=== PATIENT | female | born 1980 | race Hispanic/Latino ===

== ENCOUNTER 2017-05-19 12:52 | Emergency (ER) | payer BC, OTHER ==
[2017-05-19 13:38] LABS: Urine Blood NEGATIVE (NEG); Urine Glucose NEGATIVE (NEG); Urine Protein 1+ (NEG); Urine Specific Gravity 1.015 (1.005-1.030); Urine pH 8.5 (5.0-7.0)
[2017-05-19 14:01] LABS: Bicarbonate 32 mEq/L (21-31); Glucose Level 106 mg/dL (65-120); Lipase 15 U/L (22-51); Potassium 3.5 mEq/L (3.6-5.0); Sodium Level 138 mEq/L (135-145)
[2017-05-19 14:03] LABS: Glomerular Filtration Rate > 60 mL/min (>60)
--- NOTE | 2017-05-19 14:06 | RAD REPORT ---
EXAM DESCRIPTION: US - Abdomen Exam Limited - 05/19/2017 1:55 pm CLINICAL HISTORY: Abdominal pain, vomiting COMPARISON: None. FINDINGS: Multiple gallstones are identified. The gallbladder is partially contracted. This accentua michelle wall thickness. A true pathologic gallbladder wall thickening is not suspected. No pericholecysti c fluid. The contracted state and multiple gallstones limits the ability to assess for wall mass or p olyp. No common duct stone or biliary tree dilatation identified. IMPRESSION: Multiple gallstones in a partially contracted gallbladder. No true wall thickening or pericholecystic fluid seen. No biliary tree abnormality.
[2017-05-19 14:07] LABS: ALT/SGPT 41 IU/L (10-60); AST/SGOT 37 IU/L (10-42); Albumin 4.7 g/dL (3.2-5.5); Alkaline Phosphatase 66 IU/L (42-121); Amylase Level 46 U/L (28-100); BUN Blood Urea Nitrogen 9 mg/dL (6-20); Bilirubin Direct 0.2 mg/dL (0-0.2); Bilirubin Total 0.9 mg/dL (0.3-1.2); Glomerular Filtration Rate > 90 mL/min (=/>90)
[2017-05-19 14:10] LABS: Urine Bacteria <20 /HPF (<20); Urine Culture Reflex Order NOT NEEDED; Urine RBC <5 /HPF (NONE SEEN)
[2017-05-19] MEDS ORDERED: NA CHLORIDE 0.9% 1,000 ML ONE ×2 (14:16→16:20)
[2017-05-19] MEDS ORDERED: PANTOPRAZOLE 40 MG INJ ONE (14:16)
[2017-05-19] MEDS ORDERED: ONDANSETRON 4 MG/2 ML VIAL ONE (14:16)
[2017-05-19 14:22] LABS: Absolute Lymphocytes (CBC) 2.8 K/uL (0.7-4.9); Absolute Monocytes 0.9 K/uL (0.1-1.3); Absolute Neutrophil 10.6 K/uL (1.8-8.0); Basophils % 0.5 % (0-1.3); Eosinophils % 1.8 % (0-4.4); Hematocrit 45.8 % (36.0-45.0); Lymphocytes % 19.2 % (15.3-44.8); MCH 28.3 pg (27.0-35.0); MCV 84.5 fL (80-100); MPV 9.6 fL (7.6-11.3); Monocytes % 5.9 % (3.3-12.3); RBC Red Blood Cell Count 5.42 M/uL (3.86-4.86)
[2017-05-19] MEDS ORDERED: MAGNE/ALUM HYDROXD 30 ML UCUP ONE (14:28)
[2017-05-19] MEDS ORDERED: MORPHINE 4 MG/ML SYR ONE ×2 (14:28→17:54)
[2017-05-19] MEDS ORDERED: DICYCLOMINE HCL 10 MG CAP ONE (14:28)
[2017-05-19] MEDS ORDERED: LIDOCAINE VISCOUS 2% SOLN 15 ML UDC ONE (14:29)
--- NOTE | 2017-05-19 16:55 | RAD REPORT ---
EXAM DESCRIPTION: CT - Abdomen Pelvis W Contrast - 05/19/2017 4:42 pm CLINICAL HISTORY: Abdominal pain. Nausea and vomiting since last night COMPARISON: Ultrasound same date TECHNIQUE: Computed axial tomography of the abdomen and pelvis was obtained. 100 cc Isovue-300 is ad ministered intravenously. Oral contrast was given. All CT scans are performed using dose optimization technique as appropriate and may include automated exposure control or mA/KV adjustment according to patient size. FINDINGS: The liver has a diminished attenuation consistent with fatty infiltration Spleen, pancreas, adrenals and kidneys appear unremarkable. Gallstones are present. The gallbladder wall does not appear thickened. There is no evidence of diverticulitis IMPRESSION: Cholelithiasis
--- NOTE | 2017-05-19 17:20 | EDPHYS ---
Physician Documentation [facility] Name: Jannette Alas Age: 36 yrs Sex: Female : 1980 Arrival Date: 05/19/2017 Time: 12:54 Bed 24 Private MD: ED Physician Dickson Valencia HPI: 05/19 13:20 This 36 yrs old Female presents to ER via Ambulatory with complaints of cp Abdominal Pain. 13:20 The patient presents with abdominal pain in the epigastric area, mid abdomen. Onset: cp The symptoms/episode began/occurred last night. 13:20 Associated signs and symptoms: Pertinent positives: nausea, Pertinent negatives: blood cp in stools, constipation, diarrhea, fever, vomiting. 13:20 The symptoms are described as constant. Modifying factors: the symptoms are aggravated cp by pressure. 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 - Social history:: Smoking status: Patient/guardian denies using tobacco. ROS: 13:25 Eyes: Negative for injury, pain, redness, and discharge, ENT: Negative for injury, cp pain, and discharge, Cardiovascular: Negative for chest pain, palpitations, and edema, Respiratory: Negative for shortness of breath, cough, wheezing, and pleuritic chest pain. 13:25 Constitutional: Negative for body aches, chills, fever, poor PO intake. 13:25 Abdomen/GI: Positive for abdominal pain, nausea, of the epigastric area and mid cp abdomen, Negative for diarrhea, constipation. 13:25 Back: Negative for radiated pain. 13:25 : Negative for urinary symptoms. 13:25 Skin: Negative for cellulitis, rash. 13:25 All other systems are negative. Exam: 13:33 Constitutional: The patient appears in no acute distress, alert, awake, non-toxic, well cp developed, well nourished, obese, uncomfortable. 13:33 Head/Face: Normocephalic, atraumatic. cp 13:33 Eyes: Periorbital structures: appear normal, Conjunctiva: normal, no exudate, no injection, Sclera: no appreciated abnormality, Lids and lashes: appear normal, bilaterally. 13:33 ENT: External ear(s): are unremarkable, Nose: is normal, Mouth: Lips: moist, Oral mucosa: pink and intact, moist, Posterior pharynx: is normal, airway is patent, no erythema, no exudate, Voice: is normal. 13:33 Neck: ROM/movement: is normal, is supple, without pain, no range of motions limitations, no meningismus, no nuchal rigidity. 13:33 Chest/axilla: Inspection: normal, Palpation: is normal, no crepitus, no tenderness. 13:33 Cardiovascular: Rate: normal, Rhythm: regular. 13:33 Respiratory: the patient does not display signs of respiratory distress, Respirations: normal, no use of accessory muscles, no retractions, no splinting, no tachypnea, Breath sounds: are clear throughout, no decreased breath sounds, no stridor, no wheezing. 13:33 Abdomen/GI: Inspection: obese Bowel sounds: active, all quadrants, Palpation: soft, in all quadrants, moderate abdominal tenderness, in the epigastric area and mid abdomen, rebound tenderness, is not appreciated, voluntary guarding, is elicited in the epigastric area, involuntary guarding, is not appreciated. 13:33 Back: pain, is absent, ROM is normal. 13:33 Skin: cellulitis, is not appreciated, no rash present. Vital Signs: 13:00 BP 185 / 99; Pulse 73; Resp 17; Temp 97.4; Pulse Ox 99% on R/A; Weight 129.27 kg; aj Height 5 ft. 5 in. (165.10 cm); Pain 6/10; 14:35 BP 160 / 98; Pulse 62; Resp 15; Pulse Ox 98% on R/A; kr2 15:41 BP 148 / 97; Pulse 70; Resp 18; Pulse Ox 99% on R/A; kr2 17:00 BP 152 / 88; Pulse 68; Resp 14; Pulse Ox 99% on R/A; kr2 18:00 BP 144 / 88; Pulse 72; Resp 15; Pulse Ox 99% on R/A; kr2 13:00 Body Mass Index 47.43 (129.27 kg, 165.10 cm) aj MDM: 13:06 Patient medically screened. cp 14:00 Differential diagnosis: appendicitis, cholecystitis, Cholelithiasis, gastritis, cp pancreatitis, Peptic Ulcer Disease, Perf. Duodenal Ulcer, Perf. Gastric Ulcer, Ureterolithiasis, urinary tract infection. 17:18 Data reviewed: vital signs, nurses notes, lab test result(s), radiologic studies, CT cp scan, ultrasound, and as a result, I will discharge patient. Counseling: I had a detailed discussion with the patient and/or guardian regarding: the historical points, exam findings, and any diagnostic results supporting the discharge/admit diagnosis, lab results, radiology results, the need for outpatient follow up, a general surgeon, to return to the emergency department if symptoms worsen or persist or if there are any questions or concerns that arise at home. 05/19 13:18 Order name: Urine Dipstick--Ancillary (enter results); Complete Time: 14:06 05/19 14:33 Interpretation: Normal except: UPH 8.5; UPROT 1+. 05/19 13:18 Order name: Urine --Ancillary (enter results); Complete Time: 14:06 05/19 13:33 Order name: Amylase, Serum; Complete Time: 14:33 cp 05/19 13:33 Order name: Basic Metabolic Panel; Complete Time: 14:33 cp 05/19 14:07 Interpretation: Normal except: K 3.5; CL 97; CO2 32. cp 05/19 13:33 Order name: CBC with Diff; Complete Time: 14:39 cp 05/19 17:03 Interpretation: Normal except: WBC 14.6; RBC 5.42; HGB 15.4; HCT 45.8. cp 04 13:33 Order name: Creatinine for Radiology; Complete Time: 14:06 cp 05/19 13:33 Order name: Hepatic Function; Complete Time: 14:33 cp 05/19 13:33 Order name: Lipase; Complete Time: 14:33 cp 05/19 14:33 Interpretation: LIP 15; Reviewed. cp 05/19 13:33 Order name: Urine Microscopic Only; Complete Time: 14:33 cp 05/19 13:33 Order name: US Abdomen Limited; Complete Time: 14:06 cp 05/19 14:33 Interpretation: Report reviewed. cp 05/19 14:39 Order name: CT Abd/Pelvis - W/Contrast; Complete Time: 17:02 cp 03 17:02 Interpretation: Report reviewed. cp 05/19 13:33 Order name: Urine Test (obtain specimen); Complete Time: 14:25 cp 05/19 13:33 Order name: IV Saline Lock; Complete Time: 14:25 cp 05/19 13:33 Order name: Labs collected and sent; Complete Time: 14:25 cp 05/19 13:33 Order name: Urine Dipstick-Ancillary (obtain specimen); Complete Time: 14:25 cp 05/19 17:02 Order name: PO challenge; Complete Time: 17:50 cp Administered Medications: Discontinued: NS 0.9% 1000 ml IV at 125 ml/hr continuous 14:22 Drug: NS 0.9% 1000 ml Route: IV; Rate: 1 bolus; Site: right antecubital; kr2 15:45 Follow up: Response: No adverse reaction; IV Status: Completed infusion kr2 14:23 Drug: Zofran 4 mg Route: IVP; Site: right antecubital; kr2 15:00 Follow up: Response: No adverse reaction; Nausea is decreased kr2 14:23 Drug: ProTONIX 40 mg Route: IVP; Site: right antecubital; kr2 15:00 Follow up: Response: No adverse reaction; Pain is decreased kr2 14:23 Drug: morphine 4 mg Route: IVP; Site: right antecubital; kr2 15:00 Follow up: Response: No adverse reaction; Pain is decreased kr2 14:24 Drug: GI Cocktail without - (Maalox Suspension 30 ml, Lidocaine Liquid 2 % 15 kr2 ml) Route: PO; 17:57 Follow up: Response: No adverse reaction kr2 14:24 Drug: Bentyl 20 mg Route: PO; kr2 17:57 Follow up: Response: No adverse reaction; Pain is decreased kr2 16:01 Drug: NS 0.9% 1000 ml Route: IV; Rate: 125 ml/hr; Site: right antecubital; kr2 17:56 Follow up: Response: No adverse reaction; IV Status: Order to discontinue infusion kr2 17:12 CANCELLED (Physician Discretion): Demerol 25 mg IVP once cp 17:50 Drug: Potassium Chloride 20 mEq Route: PO; kr2 17:56 Follow up: Response: Medication administered at discharge. kr2 17:50 Drug: morphine 4 mg Route: IVP; Site: right antecubital; kr2 17:55 Follow up: Response: No adverse reaction; Pain is decreased kr2 Disposition: 05/19/17 17:20 Discharged to Home. Impression: Cholelithiasis. - Condition is Stable. - Discharge Instructions: Biliary Colic, Cholelithiasis. - Prescriptions for Bentyl 20 mg Oral Tablet - take 2 tablet by ORAL route every 6 hours As needed; 40 tablet. Cipro 500 mg Oral Tablet - take 1 tablet by ORAL route every 12 hours for 7 days; 14 tablet. Tramadol 50 mg Oral Tablet - take 1 tablet by ORAL route every 8 hours as needed; 12 tablet. promethazine 25 mg Oral Tablet - take 1 tablet by ORAL route every 6 hours As needed; 20 tablet. - Medication Reconciliation Form, Thank You Letter, Antibiotic Education, Prescription Opioid Use form. - Follow up: Lit Brambila MD; When: 1 - 2 days; Reason: Recheck today's complaints. - Problem is new. - Symptoms have improved. Signatures: Dispatcher [employer] EDWhit Carlton, RN RN Adam Cordero PA PA cp Samreen Villarreal RN RN kr2 Corrections: (The following items were deleted from the chart) 14:40 14:39 Constitutional: Negative for cp cp 17:12 17:11 Demerol 25 mg IVP once ordered. cp cp
--- NOTE | 2017-05-19 17:20 | ER ---
Nurse's Notes [facility] Name: Jannette Alas Age: 36 yrs Sex: Female : 1980 Arrival Date: 05/19/2017 Time: 12:54 Bed 24 Private MD: Diagnosis: Cholelithiasis Presentation: 05/19 12:58 Presenting complaint: Patient states: Epigastric pain and N/V that started last night aj after eating a PB\\T\\J sandwich. Patient states, "I think my gallbladder is acting up.". Transition of care: patient was not received from another setting of care. Onset of symptoms was May 18, 2017. Care prior to arrival: None. 12:58 Method Of Arrival: Ambulatory 12:58 Acuity: ZAID 3 aj Triage Assessment: 13:00 General: Appears in no apparent distress. comfortable, Behavior is calm, cooperative, aj appropriate for age. Pain: Complains of pain in epigastric area Pain currently is 6 out of 10 on a pain scale. Neuro: Level of Consciousness is awake, alert, obeys commands, Oriented to person, place, time, situation. Respiratory: Airway is patent Respiratory effort is even, unlabored, Respiratory pattern is regular, symmetrical. GI: Reports upper abdominal pain, epigastric pain, nausea, vomiting. Derm: Skin is intact, is healthy with good turgor, Skin is pink, warm \\T\\ dry. normal. 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 - Social history:: Smoking status: Patient/guardian denies using tobacco. Screenin:35 Abuse screen: Denies threats or abuse. Denies injuries from another. Nutritional kr2 screening: No deficits noted. Tuberculosis screening: No symptoms or risk factors identified. Fall Risk None identified. Assessment: 13:15 General: Appears in no apparent distress. comfortable, well groomed, well developed, kr2 well nourished, Behavior is calm, cooperative, appropriate for age. Pain: Complains of pain in epigastric area Pain currently is 5 out of 10 on a pain scale. Quality of pain is described as aching, dull, Pain began gradually, Is continuous, Alleviated by medications, rest, Aggravated by eating. Neuro: Level of Consciousness is awake, alert, obeys commands, Oriented to person, place, time, situation, Appropriate for age. Cardiovascular: Capillary refill < 3 seconds in bilateral fingers Patient's skin is warm and dry. Respiratory: Airway is patent Respiratory effort is even, unlabored, Respiratory pattern is regular, symmetrical. GI: Abdomen is round non-distended, Bowel sounds present X 4 quads. Abd is soft X 4 quads Abdomen is tender to palpation in epigastric area, right upper quadrant and left upper quadrant Reports upper abdominal pain, epigastric pain, nausea. : Denies burning with urination. EENT: Oral mucosa is moist. Derm: Skin is intact, is healthy with good turgor, Skin is pink, warm \\T\\ dry. Musculoskeletal: Circulation, motion, and sensation intact. 14:15 Reassessment: Patient appears in no apparent distress at this time. Patient and/or kr2 family updated on plan of care and expected duration. Pain level reassessed. Patient is alert, oriented x 3, equal unlabored respirations, skin warm/dry/pink. 15:30 Reassessment: Patient appears in no apparent distress at this time. Patient and/or kr2 family updated on plan of care and expected duration. Pain level reassessed. Patient is alert, oriented x 3, equal unlabored respirations, skin warm/dry/pink. Patient states symptoms have improved. 16:30 Reassessment: Patient appears in no apparent distress at this time. Patient and/or kr2 family updated on plan of care and expected duration. Pain level reassessed. Patient is alert, oriented x 3, equal unlabored respirations, skin warm/dry/pink. Patient states feeling better. 17:30 Reassessment: Patient appears in no apparent distress at this time. Patient and/or kr2 family updated on plan of care and expected duration. Pain level reassessed. Patient is alert, oriented x 3, equal unlabored respirations, skin warm/dry/pink. Reports mild pain. Vital Signs: 13:00 BP 185 / 99; Pulse 73; Resp 17; Temp 97.4; Pulse Ox 99% on R/A; Weight 129.27 kg; aj Height 5 ft. 5 in. (165.10 cm); Pain 6/10; 14:35 BP 160 / 98; Pulse 62; Resp 15; Pulse Ox 98% on R/A; kr2 15:41 BP 148 / 97; Pulse 70; Resp 18; Pulse Ox 99% on R/A; kr2 17:00 BP 152 / 88; Pulse 68; Resp 14; Pulse Ox 99% on R/A; kr2 18:00 BP 144 / 88; Pulse 72; Resp 15; Pulse Ox 99% on R/A; kr2 13:00 Body Mass Index 47.43 (129.27 kg, 165.10 cm) aj ED Course: 12:54 Patient arrived in ED. as 12:59 Triage completed. aj 13:00 Arm band placed on right wrist. Patient placed in an exam room. aj 13:05 Adam Pabon PA is PHCP. cp 13:05 Dickson Valencia MD is Attending Physician. cp 13:43 Samreen Villarreal, CORRIE is Primary Nurse. kr2 13:45 Patient taken to ultrasound. via wheelchair. aa4 13:52 Ultrasound completed. Patient tolerated well. Patient moved back from ultrasound. aa4 13:55 US Abdomen Limited In Process Unspecified. EDMS 14:35 Patient has correct armband on for positive identification. Bed in low position. Call kr2 light in reach. Side rails up X 1. Pulse ox on. NIBP on. Door closed. Warm blanket given. Head of bed elevated. 16:[address] via wheelchair. nj 16:42 CT Abd/Pelvis - W/Contrast In Process Unspecified. EDMS 17:19 Lit Brambila MD is Referral Physician. cp 18:00 No provider procedures requiring assistance completed. IV discontinued, intact, kr2 bleeding controlled, No redness/swelling at site. Pressure dressing applied. Administered Medications: Discontinued: NS 0.9% 1000 ml IV at 125 ml/hr continuous 14:22 Drug: NS 0.9% 1000 ml Route: IV; Rate: 1 bolus; Site: right antecubital; kr2 15:45 Follow up: Response: No adverse reaction; IV Status: Completed infusion kr2 14:23 Drug: Zofran 4 mg Route: IVP; Site: right antecubital; kr2 15:00 Follow up: Response: No adverse reaction; Nausea is decreased kr2 14:23 Drug: ProTONIX 40 mg Route: IVP; Site: right antecubital; kr2 15:00 Follow up: Response: No adverse reaction; Pain is decreased kr2 14:23 Drug: morphine 4 mg Route: IVP; Site: right antecubital; kr2 15:00 Follow up: Response: No adverse reaction; Pain is decreased kr2 14:24 Drug: GI Cocktail without - (Maalox Suspension 30 ml, Lidocaine Liquid 2 % 15 kr2 ml) Route: PO; 17:57 Follow up: Response: No adverse reaction kr2 14:24 Drug: Bentyl 20 mg Route: PO; kr2 17:57 Follow up: Response: No adverse reaction; Pain is decreased kr2 16:01 Drug: NS 0.9% 1000 ml Route: IV; Rate: 125 ml/hr; Site: right antecubital; kr2 17:56 Follow up: Response: No adverse reaction; IV Status: Order to discontinue infusion kr2 17:12 CANCELLED (Physician Discretion): Demerol 25 mg IVP once cp 17:50 Drug: Potassium Chloride 20 mEq Route: PO; kr2 17:56 Follow up: Response: Medication administered at discharge. kr2 17:50 Drug: morphine 4 mg Route: IVP; Site: right antecubital; kr2 17:55 Follow up: Response: No adverse reaction; Pain is decreased kr2 Outcome: 17:20 Discharge ordered by MD. cp 18:01 Discharged to home via wheelchair, with family. kr2 18:01 Condition: good 18:01 Discharge instructions given to patient, family, Instructed on discharge instructions, follow up and referral plans. medication usage, Demonstrated understanding of instructions, follow-up care, medications, Prescriptions given X 4. 18:01 Patient left the ED. kr2 Signatures: Dispatcher [employer] EDMS Whit Dickens, Neda Armijo RN, Amanda aa4 Adam Pabon PA PA cp Jordan, Nathan nj Reaves, Karey, RN RN kr2 Corrections: (The following items were deleted from the chart) 18:00 17:00 BP 144 / 88; Pulse 72bpm; Resp 15bpm; Pulse Ox 99% RA; kr2 kr2
[2017-05-19] MEDS ORDERED: POTASSIUM CL SA 10 MEQ TAB PO ONE (17:53)
== END 2017-05-19 18:01 | disposition home or self-care (01) ==
LOC: ER 12:52
DX: K80.20 Calculus of gallbladder without cholecystitis without obstruction (principal); I10 Essential (primary) hypertension
CPT/HCPCS: 36415; 74177; 76705; 80048; 80076; 81003; 81015; 81025; 82150; 83690; 85025; 96361; 96374; 96375; 99284; C9113; J2405; J7030; Q9967